=== PATIENT | female | born 1995 | race Caucasian/White ===

== ENCOUNTER 2017-07-14 12:57 | Emergency (ER) | payer BC ==
[2017-07-14] MEDS ORDERED: Ondansetron ODT 4 MG TAB ONE (14:24)
[2017-07-14 14:32] LABS: Bilirubin Small (Negative); Blood, Urine Moderate (Negative); Clarity Slightly Cloudy (Clear); Glucose, Urine (Dipstick) Negative (Negative); Leukocyte Negative (Negative); Nitrite Negative (Negative); Protein, Urine (Dipstick) 100 mg/dL (Neg-Trace); Urobilinogen 0.2 mg/dL (0.2-1.0); pH, Urine 5.5 (5.0-9.0)
[2017-07-14 14:33] LABS: WBC/HPF 0-3 HPF (0-3)
[2017-07-14 14:34] LABS: Bacteria/HPF 3+ HPF (None Seen)
[2017-07-14] MEDS ORDERED: Diphenoxylate HCl/Atropine Tablet ONE (14:49)
== END 2017-07-14 15:06 | disposition home or self-care (01) ==
LOC: MADERS 12:57
DX: K52.9 Noninfective gastroenteritis and colitis, unspecified (principal); E03.9 Hypothyroidism, unspecified; Z79.899 Other long term (current) drug therapy
CPT/HCPCS: 81001; 99284; Q0162